=== PATIENT | female | born 1980 | race Caucasian/White ===

== ENCOUNTER → 2016-08-30 00:34 | Emergency (ER) | payer MEDICAID, MEDICARE ==
[2016-08-30 02:24] VITALS: BP 132/88
== END | disposition left against medical advice (07) ==
LOC: ED 00:34
DX: K08.89 Other specified disorders of teeth and supporting structures (principal); H92.01 Otalgia, right ear; Z53.21 Procedure and treatment not carried out due to patient leaving prior to being seen by health care provider